=== PATIENT | male | born 1960 | race American Indian/Alaskan Native ===

== ENCOUNTER 2018-09-16 08:02 | Emergency (ER) | payer OTHER ==
[2018-09-16 08:17] VITALS: BP 157/94
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
== END 2018-09-16 09:30 | disposition home or self-care (01) ==
LOC: ED 08:02
DX: S29.011A Strain of muscle and tendon of front wall of thorax, initial encounter (principal); S39.012A Strain of muscle, fascia and tendon of lower back, initial encounter; M19.90 Unspecified osteoarthritis, unspecified site; M10.9 Gout, unspecified; V49.49XA Driver injured in collision with other motor vehicles in traffic accident, initial encounter; Y93.89 Activity, other specified; Y92.488 Other paved roadways as the place of occurrence of the external cause; Y99.8 Other external cause status
CPT/HCPCS: 99282